=== PATIENT | female | born 1940 | race African-American/Black ===

== ENCOUNTER 2022-09-08 07:58 | Inpatient (IN) | payer MEDICARE, MEDICAID ==
[~2022-09-08] VITALS: Ht 157.5 cm; Wt 102.1 kg
[~2022-09-08 07:58] MED LIST: AMLO1TAB64; ASPI-1406; CLOP75TA33; CRES10; ESOM40CA; FURO20TA4; LEVO-65; METF-415; METO-411; POTA-189
[2022-09-08] MEDS ORDERED: ONDANSETRON HCL 4MG/2ML INJ IV STA (08:09)
[2022-09-08] MEDS: KETOROLAC 30MG/ML VIAL IV STA ×2 (09:02→09:03)
[2022-09-08 09:05] LABS: BASOPHILS % 0.6 % (0.0-2.0); EOSINOPHILS % 2.4 % (0.0-5.0); HEMATOCRIT. 38.1 % (36.0-48.0); HEMOGLOBIN. 12.6 g/dL (12.0-16.0); LYMPHOCYTES % 33.6 % (20.0-50.0); MEAN CORPUSCULAR HEMOGLOBIN 32.1 pg (28.0-32.0); MEAN CORPUSCULAR VOLUME 97.1 fL (81.0-99.0); MEAN PLATELET VOLUME 8.9 fl (7.4-10.4); MONOCYTES % 7.6 % (2.0-8.0); NEUTROPHILS % 55.8 % (40.0-76.0); PLATELET 204 x1000/uL (130-400); RED BLOOD CELL COUNT 3.92 mill/uL (4.2-5.4); RED CELL DISTRIBUTION WIDTH 14.4 % (11.6-14.6)
[2022-09-08 09:09] LABS: CHLORIDE 95 mEq/L (98-107)
[2022-09-08] MEDS ORDERED: HYDRALAZINE 20MG/ML VIAL IV ONE (09:30)
[2022-09-08] MEDS ORDERED: INSULIN REGULAR (HUMULIN R) 300UNITS/3ML VIAL SUBCUT ONE (10:15)
[2022-09-08] MEDS ORDERED: ONDANSETRON HCL 4MG/2ML INJ IV PRN (14:15)
[2022-09-08] MEDS ORDERED: ACETAMINOPHEN 325MG TABLET PO PRN (14:15)
[2022-09-08] MEDS ORDERED: MAGNESIUM/ALUMINUM HYDROXIDE/SIMETHICONE 30ML UDC PO PRN (14:15)
[2022-09-08] MEDS ORDERED: ENOXAPARIN 40MG/0.4ML SYR SUBCUT SCH (14:15)
[2022-09-08] MEDS ORDERED: DOCUSATE SODIUM 100MG CAPSULE PO PRN (14:15)
[2022-09-08] MEDS ORDERED: GUAIFENESIN 200MG/10ML SUGAR FREE UDC PO PRN (14:15)
[2022-09-08] MEDS ORDERED: TRAMADOL 50MG TABLET PO PRN (14:15)
[2022-09-08] MEDS: AMLODIPINE 10MG TABLET PO SCH (14:30)
[2022-09-08] MEDS: PANTOPRAZOLE SODIUM 40 MG/VIAL IV SCH (14:30)
[2022-09-08] MEDS ORDERED: NALOXONE HCL 0.4MG/ML VIAL IV PRN (14:30)
[2022-09-08] MEDS: LOSARTAN POTASSIUM 50 MG TABLET PO SCH (15:59)
[2022-09-08] MEDS ORDERED: DEXTROSE 50% WATER 50ML SYRINGE IV PRN (19:30)
[2022-09-08 19:35] VITALS: BP 190/66
[2022-09-08] MEDS: ENOXAPARIN 30MG/0.3ML SYR SUBCUT SCH (19:50)
[2022-09-08] MEDS: CLONIDINE 0.1MG TABLET PO PRN (19:50)
[2022-09-08 20:00] VITALS: BP 190/66
[2022-09-08] MEDS: BLOOD SUGAR DIAGNOSTIC STRIP TEST SCH (20:44)
[2022-09-08] MEDS: INSULIN LISPRO 100 UNITS/ML SUBCUT SCH (20:44)
[2022-09-08] MEDS ORDERED: POTASSIUM CHLORIDE 20MEQ TABLET SR PO NR (22:00)
[2022-09-09] VITALS (7 sets, daily range): BP systolic 122–179; BP diastolic 50–88
[2022-09-09] MEDS: ENOXAPARIN 30MG/0.3ML SYR SUBCUT SCH ×2 (06:05→17:17)
[2022-09-09] MEDS: BLOOD SUGAR DIAGNOSTIC STRIP TEST SCH ×4 (06:06→20:38)
[2022-09-09] MEDS: INSULIN LISPRO 100 UNITS/ML SUBCUT SCH ×4 (06:06→20:38)
[2022-09-09 06:37] LABS: BASOPHILS % 0.7 % (0.0-2.0); EOSINOPHILS % 2.4 % (0.0-5.0); HEMATOCRIT. 37.1 % (36.0-48.0); HEMOGLOBIN. 12.1 g/dL (12.0-16.0); LYMPHOCYTES % 32.7 % (20.0-50.0); MEAN CORPUSCULAR HEMOGLOBIN 31.4 pg (28.0-32.0); MEAN PLATELET VOLUME 9.4 fl (7.4-10.4); MONOCYTES % 7.4 % (2.0-8.0); NEUTROPHILS % 56.8 % (40.0-76.0); PLATELET 200 x1000/uL (130-400); RED BLOOD CELL COUNT 3.86 mill/uL (4.2-5.4); RED CELL DISTRIBUTION WIDTH 14.4 % (11.6-14.6)
[2022-09-09 06:55] LABS: CHLORIDE 100 mEq/L (98-107)
[2022-09-09 07:08] LABS: HDL CHOLESTEROL 43 mg/dL (40-59); LDL CHOLESTEROL 141 mg/dL (5-100)
[2022-09-09] MEDS: PANTOPRAZOLE SODIUM 40 MG/VIAL IV SCH (08:09)
[2022-09-09] MEDS: LOSARTAN POTASSIUM 50 MG TABLET PO SCH (08:10)
[2022-09-09] MEDS: AMLODIPINE 10MG TABLET PO SCH (08:10)
[2022-09-09] MEDS: CLONIDINE 0.1MG TABLET PO PRN (08:13)
[2022-09-10] VITALS: BP 154/63
[2022-09-10 04:00] VITALS: BP 150/88
[2022-09-10] MEDS: ENOXAPARIN 30MG/0.3ML SYR SUBCUT SCH (05:59)
[2022-09-10] MEDS: INSULIN LISPRO 100 UNITS/ML SUBCUT SCH (06:09)
[2022-09-10] MEDS: BLOOD SUGAR DIAGNOSTIC STRIP TEST SCH (06:10)
[2022-09-10 08:17] VITALS: BP 109/50
[2022-09-10] MEDS: AMLODIPINE 10MG TABLET PO SCH (08:35)
[2022-09-10] MEDS ORDERED: LOSARTAN POTASSIUM 100 MG TABLET PO SCH (09:00)
[2022-09-10] MEDS ORDERED: FAMOTIDINE 20MG/2ML VIAL IV SCH (09:00)
[2022-09-10 09:25] VITALS: BP 120/53
[2022-09-11] MEDS ORDERED: FAMOTIDINE 20MG TABLET PO SCH (09:00)
== END 2022-09-10 12:00 | disposition home health service (06) | DRG 199 ==
LOC: ER 07:58 → MICUSO 10:11 → EDBEDREQTM 10:13 → EDBEDREQ 10:13 → 8WST 18:50
PROVIDERS: ADMIT Hospitalist; ATTEND Hospitalist
DX: I16.0 Hypertensive urgency (principal); E87.1 Hypo-osmolality and hyponatremia; R10.9 Unspecified abdominal pain; E87.6 Hypokalemia; E11.65 Type 2 diabetes mellitus with hyperglycemia; I25.10 Atherosclerotic heart disease of native coronary artery without angina pectoris; Z20.822 Contact with and (suspected) exposure to COVID-19; I10 Essential (primary) hypertension; E78.5 Hyperlipidemia, unspecified; R74.01 Elevation of levels of liver transaminase levels; Z28.310 Unvaccinated for COVID-19; Z87.891 Personal history of nicotine dependence; Z88.0 Allergy status to penicillin; Z79.899 Other long term (current) drug therapy; Z82.49 Family history of ischemic heart disease and other diseases of the circulatory system
CPT/HCPCS: 36415; 74176; 80053; 80061; 82962; 83036; 85025; 87426; 93005; 93970; 97162; 97165; 97530; 99285; C9113; J0360; J1650; J1815; J1885; J2405; J3490

== ENCOUNTER 2025-01-29 17:22 | Inpatient (IN) | payer MEDICARE, MEDICAID ==
[~2025-01-29] VITALS: Ht 170.2 cm; Wt 78.9 kg
[2025-01-29 18:19] LABS: BASOPHILS % 0.7 % (0.0-2.0); DIFFERENTIAL COMMENT 0; EOSINOPHILS % 0.9 % (0.0-5.0); LYMPHOCYTES % 13.1 % (20.0-50.0); MEAN CORPUSCULAR HEMOGLOBIN 23.2 pg (28.0-32.0); MEAN CORPUSCULAR HGB CONC 29.9 g/dL (31.0-37.0); MEAN CORPUSCULAR VOLUME 77.5 fL (81.0-99.0); MEAN PLATELET VOLUME 7.8 fl (7.4-10.4); MONOCYTES % 5.7 % (2.0-8.0); NEUTROPHILS % 79.6 % (40.0-76.0); PLATELET 283 x1000/uL (130-400); RED BLOOD CELL COUNT 2.64 mill/uL (4.2-5.4); RED CELL DISTRIBUTION WIDTH 21.8 % (11.6-14.6); WHITE BLOOD COUNT 9.5 x1000/uL (4.5-11.0)
[2025-01-29 18:27] LABS: HEMATOCRIT. 20.5 % (36.0-48.0); HEMOGLOBIN. 6.1 g/dL (12.0-16.0)
[2025-01-29 18:28] LABS: INR 1.1; PROTHROMBIN TIME 11.5 sec (9.6-11.0)
[2025-01-29 18:36] LABS: CARBON DIOXIDE 27 mEq/L (21-32); CHLORIDE 110 mEq/L (98-107); POTASSIUM 4.5 mEq/L (3.5-5.1); SODIUM 143 mEq/L (136-145)
[2025-01-29 18:37] LABS: CALCIUM 9.5 mg/dL (8.7-10.4)
[2025-01-29 18:41] LABS: CREATININE 1.3 mg/dL (0.6-1.0)
[2025-01-29 18:42] LABS: GLUCOSE 137 mg/dL (70-105); UREA NITROGEN BLOOD 21 mg/dL (9-23)
[2025-01-29 18:43] LABS: ALANINE AMINOTRANSFERASE 12 IU/L (10-49); ASPARTATE AMINOTRANSFERASE 21 IU/L (<34)
[2025-01-29 18:44] LABS: ALBUMIN 3.7 g/dL (3.2-4.8); BILIRUBIN DIRECT < 0.1 mg/dL (<=3.0); BILIRUBIN TOTAL 0.3 mg/dL (0.1-1.0); PHOSPHORUS 3.6 mg/dL (2.5-4.9); PROTEIN TOTAL 6.7 g/dL (6.0-8.3)
[2025-01-29 18:49] LABS: TROPONIN I HIGH SENSITIVITY 65 ng/L (3.0-34)
[2025-01-29] MEDS: SODIUM CHLORIDE 0.9% 1,000 ML IV ONE (19:44)
[2025-01-29 20:29] LABS: INFLUENZA TYPE A Presumptive Negative (Pres. Neg.)
[2025-01-29 20:30] LABS: INFLUENZA TYPE B Presumptive Negative (Pres. Neg.)
[2025-01-29 20:31] LABS: RESPIRATORY SYNCYTIAL VIRUS Not Detected (Not Detectd)
[2025-01-29] MEDS ORDERED: ONDANSETRON HCL 4MG/2ML INJ IV PRN (21:00)
[2025-01-29] MEDS ORDERED: NA PHOS,M-B/NA PHOS,DI-BA ENEMA 118ML PR PRN (21:00)
[2025-01-29] MEDS ORDERED: DOCUSATE SODIUM 100MG CAPSULE PO PRN (21:00)
[2025-01-29] MEDS ORDERED: ACETAMINOPHEN 325MG TABLET PO PRN (21:00)
[2025-01-29] MEDS ORDERED: NITROGLYCERIN 0.4MG TABLET SL SL PRN (21:00)
[2025-01-29] MEDS: INSULIN LISPRO 100 UNITS/ML SUBCUT SCH (21:00)
[2025-01-29] MEDS ORDERED: DEXTROSE 50% WATER 50ML SYRINGE IV PRN (21:00)
[2025-01-29] MEDS: BLOOD SUGAR DIAGNOSTIC STRIP TEST SCH (21:00)
[2025-01-29] MEDS ORDERED: IPRATROPIUM/ALBUTEROL 0.5-3(2.5)MG/3ML NEB NEB PRN (21:00)
[2025-01-29] MEDS ORDERED: MAGNESIUM/ALUMINUM HYDROXIDE/SIMETHICONE 30ML UDC PO PRN ×2 (21:00)
[2025-01-29] MEDS ORDERED: DIPHENHYDRAMINE 50MG/ML VIAL IV PRN (21:00)
[2025-01-29] MEDS ORDERED: SODIUM CHLORIDE 0.45% 1,000 ML IV SCH (21:00)
[2025-01-29] MEDS ORDERED: MORPHINE SULFATE 2 MG/ML INJ (NOT FOR IM USE) IV PRN (21:00)
[2025-01-29 21:39] LABS: IRON 14 ug/dL (50-170)
[2025-01-29 21:42] LABS: TOTAL IRON BINDING CAPACITY 337 ug/dl (250-425)
[2025-01-29 21:45] LABS: FOLIC ACID (FOLATE) SERUM > 20.00 ng/mL (>5.38)
[2025-01-29 21:46] LABS: VITAMIN B12 SERUM 950 pg/mL (211-911)
[2025-01-29 21:47] LABS: FERRITIN 4 ng/mL (10-291)
[2025-01-29] MEDS: OSELTAMIVIR 30MG CAPSULE PO SCH (22:05)
[2025-01-29] MEDS: HYDRALAZINE 20MG/ML VIAL IV SCH (22:07)
[2025-01-29] MEDS: SODIUM CHLORIDE 0.9% 1,000 ML IV SCH (22:15)
[2025-01-29 22:50] VITALS: BP 161/56; PULSE 58; RESP 18; TEMP 35.7
[2025-01-29 23:15] VITALS: BP 161/56; PULSE 58; RESP 18; TEMP 35.7; O2SAT 99
[2025-01-30] VITALS: BP 169/51; PULSE 56; RESP 22; TEMP 35.6; O2SAT 100
[2025-01-30] MEDS: ATORVASTATIN CALCIUM 40MG TABLET PO SCH (01:02)
[2025-01-30] MEDS: METOPROLOL TARTRATE 25MG TABLET PO SCH (01:02)
[2025-01-30 01:31] LABS: CHLORIDE 109 mEq/L (98-107); POTASSIUM 4.1 mEq/L (3.5-5.1); SODIUM 141 mEq/L (136-145)
[2025-01-30 01:32] LABS: CALCIUM 8.8 mg/dL (8.7-10.4); CARBON DIOXIDE 25 mEq/L (21-32)
[2025-01-30 01:37] LABS: GLUCOSE 90 mg/dL (70-105); UREA NITROGEN BLOOD 19 mg/dL (9-23)
[2025-01-30 01:38] LABS: CREATINE KINASE MB FRACTION < 0.5 ng/mL (0.5-3.6)
[2025-01-30 01:39] LABS: CREATINE KINASE 43 IU/L (34-145)
[2025-01-30 01:41] LABS: TROPONIN I HIGH SENSITIVITY 44 ng/L (3.0-34)
[2025-01-30] MEDS ORDERED: NALOXONE HCL 0.4MG/ML VIAL IV PRN (02:00)
[2025-01-30] MEDS ORDERED: PNEUMOCOCCAL 20-VAL CONJ-DIP CRM 0.5ML IM ONE (03:45)
[2025-01-30 04:00] VITALS: BP 175/57; PULSE 58; RESP 22; TEMP 35.7; O2SAT 97
[2025-01-30] MEDS: CLONIDINE 0.1MG TABLET PO PRN (05:13)
[2025-01-30] MEDS: INSULIN LISPRO 100 UNITS/ML SUBCUT SCH (07:20)
[2025-01-30 07:43] LABS: BASOPHILS % 1.5 % (0.0-2.0); DIFFERENTIAL COMMENT 0; EOSINOPHILS % 0.6 % (0.0-5.0); HEMATOCRIT. 23.4 % (36.0-48.0); HEMOGLOBIN. 7.2 g/dL (12.0-16.0); LYMPHOCYTES % 17.1 % (20.0-50.0); MEAN CORPUSCULAR HEMOGLOBIN 24.5 pg (28.0-32.0); MEAN CORPUSCULAR HGB CONC 30.8 g/dL (31.0-37.0); MEAN CORPUSCULAR VOLUME 79.6 fL (81.0-99.0); MEAN PLATELET VOLUME 8.1 fl (7.4-10.4); MONOCYTES % 7.9 % (2.0-8.0); NEUTROPHILS % 72.9 % (40.0-76.0); PLATELET 237 x1000/uL (130-400); RED BLOOD CELL COUNT 2.94 mill/uL (4.2-5.4); RED CELL DISTRIBUTION WIDTH 21.4 % (11.6-14.6); WHITE BLOOD COUNT 7.7 x1000/uL (4.5-11.0)
[2025-01-30 07:55] LABS: CREATINE KINASE MB FRACTION < 0.5 ng/mL (0.5-3.6)
[2025-01-30 07:56] LABS: CALCIUM 8.6 mg/dL (8.7-10.4); CARBON DIOXIDE 26 mEq/L (21-32); CHLORIDE 107 mEq/L (98-107); SODIUM 139 mEq/L (136-145)
[2025-01-30 07:59] LABS: T4 FREE 0.65 ng/dL (0.89-1.76)
[2025-01-30 08:00] VITALS: BP 179/58; PULSE 49; RESP 18; TEMP 36.1; O2SAT 95
[2025-01-30 08:00] LABS: CREATINE KINASE 41 IU/L (34-145); THYROID STIMULATING HORMONE 1.71 uIU/mL (0.55-4.78)
[2025-01-30 08:02] LABS: GLUCOSE 81 mg/dL (70-105); TRIGLYCERIDE 89 mg/dL (0-150); UREA NITROGEN BLOOD 19 mg/dL (9-23)
[2025-01-30 08:03] LABS: LDL CHOLESTEROL 103 mg/dL (5-100)
[2025-01-30 08:04] LABS: CHOLESTEROL 166 mg/dL (<200); HDL CHOLESTEROL 44 mg/dL (>65); TROPONIN I HIGH SENSITIVITY 45 ng/L (3.0-34)
[2025-01-30] MEDS: AMLODIPINE 10MG TABLET PO SCH (09:00)
[2025-01-30] MEDS: FUROSEMIDE 20MG TABLET PO SCH (09:00)
[2025-01-30] MEDS: INSULIN GLARGINE 100 UNITS/ML SUBCUT SCH (10:00)
[2025-01-30] MEDS: FERROUS SULFATE 325MG TABLET PO SCH (10:00)
[2025-01-30] MEDS: CLOPIDOGREL 75MG TABLET PO SCH (10:00)
[2025-01-30] MEDS: LOSARTAN 50 MG TABLET PO SCH (10:01)
[2025-01-30] MEDS ORDERED: LIDOCAINE HCL 1% 10 MG/ML 10ML VIAL ONE (11:06)
[2025-01-30 12:00] VITALS: BP 145/53; PULSE 51; RESP 18; TEMP 36.1; O2SAT 95
[2025-01-30 16:00] VITALS: BP 152/45; PULSE 53; RESP 18; TEMP 36.1; O2SAT 96
[2025-01-30] MEDS: GUAIFENESIN 200MG/10ML SUGAR FREE UDC PO PRN (17:45)
[2025-01-30] MEDS ORDERED: NON FORMULARY MED XX SCH (18:45)
[2025-01-30 20:00] VITALS: BP 167/49; PULSE 51; RESP 18; TEMP 36.4; O2SAT 98
[2025-01-30] MEDS: IRON SUCROSE COMPLEX 100 MG/5 ML ML IV SCH (22:11)
[2025-01-30 22:20] LABS: TROPONIN I HIGH SENSITIVITY 47 ng/L (3.0-34)
[2025-01-30] MEDS: SENNOSIDES/DOCUSATE SOD 8.6/50MG TABLET PO SCH (22:28)
[2025-01-30] MEDS: LACTULOSE 20G/30ML UDC PO SCH (22:58)
[2025-01-30] MEDS: PANTOPRAZOLE SODIUM 40 MG/VIAL IV SCH (22:59)
[2025-01-31] VITALS: BP_SYST 183; BP_SYST 185; BP_DIAS 49; BP_DIAS 51; PULSE 51; RESP 19; TEMP 36.5; O2SAT 97
[2025-01-31] MEDS: CLONIDINE 0.2MG TABLET PO PRN (01:42)
[2025-01-31 04:00] VITALS: BP 179/46; PULSE 44; RESP 19; TEMP 36.4; O2SAT 95
[2025-01-31] MEDS ORDERED: CLONIDINE 0.3MG TABLET PO PRN (07:30)
[2025-01-31 08:00] VITALS: BP 184/49; PULSE 47; RESP 17; TEMP 36.4; O2SAT 95
[2025-01-31] MEDS: PANTOPRAZOLE SODIUM 40 MG/VIAL IV SCH (08:41)
[2025-01-31] MEDS: HYDRALAZINE HCL 100MG TABLET PO SCH (08:42)
[2025-01-31 10:06] LABS: BASOPHILS % 0.7 % (0.0-2.0); DIFFERENTIAL COMMENT 0; EOSINOPHILS % 1.3 % (0.0-5.0); HEMATOCRIT. 23.4 % (36.0-48.0); HEMOGLOBIN. 7.3 g/dL (12.0-16.0); LYMPHOCYTES % 14.1 % (20.0-50.0); MEAN CORPUSCULAR HEMOGLOBIN 24.7 pg (28.0-32.0); MEAN CORPUSCULAR HGB CONC 31.1 g/dL (31.0-37.0); MEAN CORPUSCULAR VOLUME 79.6 fL (81.0-99.0); MEAN PLATELET VOLUME 8.3 fl (7.4-10.4); MONOCYTES % 6.4 % (2.0-8.0); NEUTROPHILS % 77.5 % (40.0-76.0); PLATELET 237 x1000/uL (130-400); RED BLOOD CELL COUNT 2.94 mill/uL (4.2-5.4); RED CELL DISTRIBUTION WIDTH 21.7 % (11.6-14.6)
[2025-01-31 10:17] LABS: CHLORIDE 107 mEq/L (98-107); POTASSIUM 3.5 mEq/L (3.5-5.1); SODIUM 141 mEq/L (136-145)
[2025-01-31 10:18] LABS: CALCIUM 8.5 mg/dL (8.7-10.4); CARBON DIOXIDE 26 mEq/L (21-32)
[2025-01-31 10:23] LABS: GLUCOSE 84 mg/dL (70-105); UREA NITROGEN BLOOD 15 mg/dL (9-23)
[2025-01-31] MEDS: MORPHINE SULFATE 4 MG/ML INJ (FOR IV/IM USE) IV PRN (10:49)
[2025-01-31] MEDS: HYDROCODONE/ACETAMINOPHEN 5/325MG TABLET PO PRN (11:12)
[2025-01-31 12:00] VITALS: BP 141/54; PULSE 52; RESP 17; TEMP 36.8; O2SAT 100
[2025-01-31] MEDS ORDERED: HALOPERIDOL 0.5MG TABLET PO PRN (13:00)
[2025-01-31] MEDS ORDERED: HYDRALAZINE HCL 25MG TABLET PO SCH (14:00)
[2025-01-31 16:00] VITALS: BP 148/38; PULSE 89; RESP 19; TEMP 36.1; O2SAT 100
[2025-01-31 20:00] VITALS: BP 159/40; PULSE 50; RESP 20; TEMP 36.7; O2SAT 99
[2025-02-01] VITALS: BP 164/113; PULSE 49; RESP 19; TEMP 36.6; O2SAT 99
[2025-02-01 04:00] VITALS: BP 177/46; PULSE 51; RESP 19; TEMP 36.6; O2SAT 99
[2025-02-01 07:16] LABS: BASOPHILS % 1.7 % (0.0-2.0); EOSINOPHILS % 2.8 % (0.0-5.0); HEMATOCRIT. 23.2 % (36.0-48.0); HEMOGLOBIN. 7.2 g/dL (12.0-16.0); LYMPHOCYTES % 12.7 % (20.0-50.0); MEAN CORPUSCULAR HEMOGLOBIN 24.7 pg (28.0-32.0); MEAN CORPUSCULAR HGB CONC 31.2 g/dL (31.0-37.0); MEAN PLATELET VOLUME 8.3 fl (7.4-10.4); MONOCYTES % 5.5 % (2.0-8.0); NEUTROPHILS % 77.3 % (40.0-76.0); PLATELET 228 x1000/uL (130-400); RED BLOOD CELL COUNT 2.94 mill/uL (4.2-5.4); RED CELL DISTRIBUTION WIDTH 22.2 % (11.6-14.6); WHITE BLOOD COUNT 7.9 x1000/uL (4.5-11.0)
[2025-02-01 07:21] LABS: DIFFERENTIAL COMMENT 1
[2025-02-01 07:22] LABS: ADD RBC MORPHOLOGY YES
[2025-02-01 07:26] LABS: CALCIUM 8.2 mg/dL (8.7-10.4); CHLORIDE 107 mEq/L (98-107); POTASSIUM 3.4 mEq/L (3.5-5.1); SODIUM 139 mEq/L (136-145)
[2025-02-01 07:27] LABS: CARBON DIOXIDE 24 mEq/L (21-32)
[2025-02-01 07:32] LABS: GLUCOSE 75 mg/dL (70-105); UREA NITROGEN BLOOD 13 mg/dL (9-23)
[2025-02-01 08:00] VITALS: BP 199/53; PULSE 56; RESP 16; TEMP 36.9; O2SAT 97
[2025-02-01] MEDS: POTASSIUM CHLORIDE 20MEQ/PACKET PO SCH (08:30)
[2025-02-01] MEDS ORDERED: HYDR100T11 MT (09:00)
[2025-02-01] MEDS ORDERED: FERR325T6 MT (09:00)
[2025-02-01] MEDS ORDERED: CLON0.2T MT (09:00)
[2025-02-01 10:14] VITALS: BP 156/41; PULSE 57; TEMP 97.5; O2SAT 96
[2025-02-01 10:34] LABS: ANISOCYTOSIS 3+; MICROCYTOSIS 1+; PLATELET ESTIMATE NORMAL
== END 2025-02-01 11:40 | disposition home or self-care (01) | DRG 812 ==
LOC: ER 17:22 → 6WST 19:39 → EDBEDREQ 19:44 → ENRESERV 21:28
PROVIDERS: ADMIT Internal Medicine; ATTEND Internal Medicine
PROC: 30233N1 Transfusion of Nonautologous Red Blood Cells into Peripheral Vein, Percutaneous Approach (ICD-10-PCS; principal; 2025-01-29)
DX: D50.9 Iron deficiency anemia, unspecified (principal); I16.9 Hypertensive crisis, unspecified; N17.9 Acute kidney failure, unspecified; I24.89 Other forms of acute ischemic heart disease; I50.42 Chronic combined systolic (congestive) and diastolic (congestive) heart failure; J06.9 Acute upper respiratory infection, unspecified; Z20.822 Contact with and (suspected) exposure to COVID-19; I25.119 Atherosclerotic heart disease of native coronary artery with unspecified angina pectoris; I11.0 Hypertensive heart disease with heart failure; E11.9 Type 2 diabetes mellitus without complications; Z79.02 Long term (current) use of antithrombotics/antiplatelets; Z79.4 Long term (current) use of insulin; Z79.82 Long term (current) use of aspirin; Z79.84 Long term (current) use of oral hypoglycemic drugs; I25.2 Old myocardial infarction; Z79.899 Other long term (current) drug therapy; Z82.49 Family history of ischemic heart disease and other diseases of the circulatory system; Z87.891 Personal history of nicotine dependence; Z88.0 Allergy status to penicillin; Z90.710 Acquired absence of both cervix and uterus
CPT/HCPCS: 36415; 36573; 71045; 80048; 80061; 80076; 82270; 82550; 82553; 82607; 82728; 82746; 82962; 83036; 83540; 83550; 83605; 83735; 83880; 84100; 84145; 84439; 84443; 84484; 85025; 85044; 86850; 86900; 86920; 87420; 87426; 87804; 90732; 93005; 97162; 97166; 97530; 97535; 99285; C1725; J0360; J2003; J2270; J2470; J7030; P9016

== ENCOUNTER 2025-02-21 18:15 | Inpatient (IN) | payer MEDICARE, MEDICAID ==
[~2025-02-21] VITALS: Ht 162.6 cm; Wt 63.5 kg
[~2025-02-21 18:15] MED LIST changes: +CHLO25TA2 PO; +CLON0.2T MT; -CRES10; +DOCU-422 PO; +DONE-53 PO; +FERR325T6 MT; +FURO20TA4 PO; +HYDR100T11 MT; -LEVO-65; +LIP40 PO; +LOSA100T33 PO; +NIFE-32 PO; -POTA-189
[2025-02-21 18:39] VITALS: BP 136/78; PULSE 68; RESP 16; TEMP 36.8
[2025-02-21] MEDS ORDERED: ACETAMINOPHEN 325MG TABLET PO PRN (19:00)
[2025-02-21] MEDS ORDERED: DOCUSATE SODIUM 100MG CAPSULE PO SCH (19:00)
[2025-02-21 20:00] VITALS: BP 166/52; PULSE 67; RESP 18; TEMP 36.7; O2SAT 96
[2025-02-21] MEDS: ATORVASTATIN CALCIUM 40MG TABLET PO SCH (20:55)
[2025-02-21] MEDS: PANTOPRAZOLE 40MG DR TABLET PO SCH (20:56)
[2025-02-21] MEDS: HYDRALAZINE HCL 100MG TABLET PO SCH (21:19)
[2025-02-21] MEDS: MELATONIN 3MG TABLET PO PRN (22:11)
[2025-02-21 22:20] VITALS: BP 144/48
[2025-02-22] MEDS: ACETAMINOPHEN 325MG TABLET PO PRN (05:00)
[2025-02-22] MEDS: SULFAMETHOXAZOLE/TRIMETHOPRIM 800/160MG TABLET PO SCH (05:02)
[2025-02-22 06:08] VITALS: BP 128/48
[2025-02-22] MEDS: TRAMADOL HCL/ACETAMINOPHEN 37.5/325MG TABLET PO PRN (06:45)
[2025-02-22 08:00] VITALS: BP 118/52; PULSE 73; RESP 19; TEMP 36.6; O2SAT 97
[2025-02-22] MEDS: ONDANSETRON 4MG ODT PO PRN (08:38)
[2025-02-22] MEDS: FERROUS SULFATE 325MG TABLET PO SCH (08:38)
[2025-02-22] MEDS: ASPIRIN 81MG EC TABLET PO SCH (08:38)
[2025-02-22] MEDS: FAMOTIDINE 20MG TABLET PO SCH (08:38)
[2025-02-22] MEDS: POLYETHYLENE GLYCOL 3350 (17GM) 1 DOSE PACK PO SCH (08:39)
[2025-02-22] MEDS: CLOPIDOGREL 75MG TABLET PO SCH (08:39)
[2025-02-22] MEDS: AMLODIPINE 10MG TABLET PO SCH (08:39)
[2025-02-22] MEDS: SODIUM CHLORIDE 0.45% 500 ML IV ONE (12:43)
[2025-02-22 16:49] LABS: BASOPHILS % 1.7 % (0.0-2.0); EOSINOPHILS % 4.9 % (0.0-5.0); HEMATOCRIT. 26.4 % (36.0-48.0); HEMOGLOBIN. 8.4 g/dL (12.0-16.0); LYMPHOCYTES % 23.1 % (20.0-50.0); MEAN CORPUSCULAR HEMOGLOBIN 27.1 pg (28.0-32.0); MEAN CORPUSCULAR HGB CONC 31.7 g/dL (31.0-37.0); MEAN CORPUSCULAR VOLUME 85.7 fL (81.0-99.0); NEUTROPHILS % 63.3 % (40.0-76.0); PLATELET 322 x1000/uL (130-400); RED BLOOD CELL COUNT 3.09 mill/uL (4.2-5.4); RED CELL DISTRIBUTION WIDTH 26.5 % (11.6-14.6); WHITE BLOOD COUNT 6.2 x1000/uL (4.5-11.0)
[2025-02-22 16:55] LABS: CHLORIDE 106 mEq/L (98-107); POTASSIUM 3.9 mEq/L (3.5-5.1); SODIUM 141 mEq/L (136-145)
[2025-02-22 16:56] LABS: CALCIUM 9.3 mg/dL (8.7-10.4); CARBON DIOXIDE 26 mEq/L (21-32)
[2025-02-22 17:01] LABS: GLUCOSE 93 mg/dL (70-105); UREA NITROGEN BLOOD 13 mg/dL (9-23)
[2025-02-22 17:02] LABS: ALBUMIN 3.8 g/dL (3.2-4.8)
[2025-02-22 17:03] LABS: ALANINE AMINOTRANSFERASE 14 IU/L (10-49); ASPARTATE AMINOTRANSFERASE 25 IU/L (<34); BILIRUBIN TOTAL 0.2 mg/dL (0.1-1.0); CREATININE 1.7 mg/dL (0.6-1.0); PREALBUMIN 9.2 mg/dl (10.0-40.0); PROTEIN TOTAL 6.6 g/dL (6.0-8.3)
[2025-02-22 17:11] LABS: DIFFERENTIAL COMMENT 1
[2025-02-22 20:24] VITALS: BP 144/50; PULSE 65; RESP 18; TEMP 36.8; O2SAT 96
[2025-02-23 08:00] VITALS: BP 129/79; PULSE 72; RESP 18; TEMP 37.1; O2SAT 96
[2025-02-23 20:00] VITALS: BP 133/55; PULSE 66; RESP 18; TEMP 36.7; O2SAT 96
[2025-02-24 08:00] VITALS: BP 150/82; PULSE 68; RESP 20; TEMP 37; O2SAT 100
[2025-02-24] MEDS: ASCORBIC ACID 500 MG TABLET PO SCH (09:04)
[2025-02-24 20:00] VITALS: BP 147/43; PULSE 75; RESP 19; TEMP 36.9; O2SAT 99
[2025-02-25 08:00] VITALS: BP 160/45; PULSE 74; RESP 18; TEMP 36.2; O2SAT 98
[2025-02-25 20:51] VITALS: BP 144/48; PULSE 81; RESP 19; TEMP 36.7; O2SAT 97
[2025-02-26 08:00] VITALS: BP 134/42; PULSE 71; RESP 18; TEMP 36.1; O2SAT 97
[2025-02-26 20:00] VITALS: BP 152/48; PULSE 74; RESP 18; TEMP 36.7; O2SAT 97
[2025-02-27 06:21] LABS: BASOPHILS % 0.9 % (0.0-2.0); EOSINOPHILS % 6.3 % (0.0-5.0); HEMATOCRIT. 23.8 % (36.0-48.0); HEMOGLOBIN. 7.3 g/dL (12.0-16.0); LYMPHOCYTES % 29.2 % (20.0-50.0); MEAN CORPUSCULAR HEMOGLOBIN 26.5 pg (28.0-32.0); MEAN CORPUSCULAR HGB CONC 30.9 g/dL (31.0-37.0); MEAN CORPUSCULAR VOLUME 85.7 fL (81.0-99.0); MEAN PLATELET VOLUME 8.2 fl (7.4-10.4); MONOCYTES % 8.1 % (2.0-8.0); NEUTROPHILS % 55.5 % (40.0-76.0); PLATELET 270 x1000/uL (130-400); RED BLOOD CELL COUNT 2.77 mill/uL (4.2-5.4); RED CELL DISTRIBUTION WIDTH 27.2 % (11.6-14.6); WHITE BLOOD COUNT 5.5 x1000/uL (4.5-11.0)
[2025-02-27 06:24] LABS: POTASSIUM 4.3 mEq/L (3.5-5.1)
[2025-02-27 06:25] LABS: CALCIUM 8.9 mg/dL (8.7-10.4)
[2025-02-27 06:30] LABS: CREATININE 1.5 mg/dL (0.6-1.0)
[2025-02-27 06:42] LABS: DIFFERENTIAL COMMENT 1
[2025-02-27 08:00] VITALS: BP 151/50; PULSE 76; RESP 19; TEMP 36.7; O2SAT 98
[2025-02-27 20:00] VITALS: BP 141/59; PULSE 61; RESP 18; TEMP 36.8; O2SAT 98
[2025-02-28 08:00] VITALS: BP 130/59; PULSE 70; RESP 18; TEMP 36.1; O2SAT 98
[2025-02-28] MEDS ORDERED: NALOXONE HCL 0.4MG/ML VIAL IV PRN (09:30)
[2025-02-28 13:14] LABS: CLARITY URINE CLEAR (CLEAR); COLOR URINE YELLOW (YELLOW); GLUCOSE URINE NEGATIVE (NEGATIVE); KETONES URINE NEGATIVE (NEGATIVE); LEUKOCYTE ESTERASE URINE NEGATIVE (NEGATIVE); NITRITE URINE NEGATIVE (NEGATIVE); OCCULT BLOOD URINE NEGATIVE (NEGATIVE); PH URINE 5.5 (4.5-8.0); PROTEIN URINE 1+ (NEGATIVE); SPECIFIC GRAVITY URINE 1.014 (1.005-1.030); UROBILINOGEN URINE 0.2 E.U./dL (0.2-1.0)
[2025-02-28 13:25] LABS: CREATINE KINASE 49 IU/L (34-145)
[2025-02-28 13:26] LABS: PHOSPHORUS 3.2 mg/dL (2.5-4.9); TOTAL IRON BINDING CAPACITY 149 ug/dl (250-425)
[2025-02-28] MEDS: TRAMADOL HCL/ACETAMINOPHEN 37.5/325MG TABLET PO PRN (13:46)
[2025-02-28 14:07] LABS: BACTERIA URINE 1+; SQUAMOUS EPITHELIAL CELL URINE 1+ /lpf (RARE/1+); WBC URINE 0-2 /hpf (0-2)
[2025-02-28 14:08] LABS: RBC URINE NONE SEEN /hpf (0-2); YEAST URINE 1+
[2025-02-28 15:58] LABS: IRON 90 ug/dL (50-170)
[2025-02-28] MEDS ORDERED: CEFTRIAXONE 1GM/50ML 50 ML IV ONE (19:00)
[2025-02-28 20:00] VITALS: BP 134/44; PULSE 71; RESP 18; TEMP 37.8; O2SAT 97
[2025-03-01 06:35] LABS: BASOPHILS % 1.4 % (0.0-2.0); EOSINOPHILS % 6.5 % (0.0-5.0); HEMATOCRIT. 25.1 % (36.0-48.0); HEMOGLOBIN. 7.9 g/dL (12.0-16.0); LYMPHOCYTES % 27.7 % (20.0-50.0); MEAN CORPUSCULAR HEMOGLOBIN 27.1 pg (28.0-32.0); MEAN CORPUSCULAR HGB CONC 31.5 g/dL (31.0-37.0); MEAN CORPUSCULAR VOLUME 85.9 fL (81.0-99.0); MEAN PLATELET VOLUME 7.9 fl (7.4-10.4); MONOCYTES % 7.6 % (2.0-8.0); NEUTROPHILS % 56.8 % (40.0-76.0); PLATELET 277 x1000/uL (130-400); RED BLOOD CELL COUNT 2.92 mill/uL (4.2-5.4); RED CELL DISTRIBUTION WIDTH 27.5 % (11.6-14.6); WHITE BLOOD COUNT 5.7 x1000/uL (4.5-11.0)
[2025-03-01 06:44] LABS: DIFFERENTIAL COMMENT 1
[2025-03-01 06:45] LABS: ADD RBC MORPHOLOGY NO
[2025-03-01 06:47] LABS: POTASSIUM 4.4 mEq/L (3.5-5.1)
[2025-03-01 06:48] LABS: CALCIUM 9.8 mg/dL (8.7-10.4)
[2025-03-01 06:53] LABS: CREATININE 1.4 mg/dL (0.6-1.0)
[2025-03-01 08:00] VITALS: BP 139/69; PULSE 79; RESP 19; TEMP 36.4; O2SAT 98
[2025-03-01] MEDS ORDERED: ASCO500T20 PO (10:55)
[2025-03-01] MEDS ORDERED: AMLO10TA80 PO (10:55)
[2025-03-01] MEDS ORDERED: LIP40 PO (10:55)
[2025-03-01] MEDS ORDERED: POLY17PO43 PO (10:55)
[2025-03-01 11:00] VITALS: BP 139/69; PULSE 79; TEMP 97.5; O2SAT 98
[2025-03-02] MEDS ORDERED: FAMOTIDINE 20MG TABLET PO SCH (09:00)
== END 2025-03-01 12:50 | disposition home health service (06) | DRG 71 ==
PROVIDERS: ADMIT Physical Medicine & Rehabilitation Spinal Cord Injury Medicine; ATTEND Internal Medicine
DX: G93.41 Metabolic encephalopathy (principal); F02.83 Dementia in other diseases classified elsewhere, unspecified severity, with mood disturbance; N17.9 Acute kidney failure, unspecified; N39.0 Urinary tract infection, site not specified; F02.84 Dementia in other diseases classified elsewhere, unspecified severity, with anxiety; E86.0 Dehydration; I44.1 Atrioventricular block, second degree; G62.1 Alcoholic polyneuropathy; E11.42 Type 2 diabetes mellitus with diabetic polyneuropathy; B96.20 Unspecified Escherichia coli [E. coli] as the cause of diseases classified elsewhere; I50.9 Heart failure, unspecified; I11.0 Hypertensive heart disease with heart failure; I25.10 Atherosclerotic heart disease of native coronary artery without angina pectoris; I25.2 Old myocardial infarction; R53.81 Other malaise; R26.9 Unspecified abnormalities of gait and mobility; D64.9 Anemia, unspecified; G89.29 Other chronic pain; M25.571 Pain in right ankle and joints of right foot; G30.9 Alzheimer's disease, unspecified; R55 Syncope and collapse; R13.10 Dysphagia, unspecified; E03.8 Other specified hypothyroidism; R00.1 Bradycardia, unspecified; I95.1 Orthostatic hypotension; Z82.49 Family history of ischemic heart disease and other diseases of the circulatory system; Z87.891 Personal history of nicotine dependence; Z88.0 Allergy status to penicillin; Z91.81 History of falling; Z79.899 Other long term (current) drug therapy; Z79.82 Long term (current) use of aspirin
CPT/HCPCS: 36415; 73610; 73630; 76770; 80048; 80053; 81003; 82306; 82550; 82728; 83540; 83550; 84100; 84134; 84145; 84300; 85025; 92523; 92610; 97110; 97116; 97162; 97166; 97530; 97535; Q0162

== ENCOUNTER 2025-05-30 13:19 | Inpatient (IN) | payer MEDICARE, MEDICAID ==
[~2025-05-30] VITALS: Ht 165.1 cm; Wt 80.9 kg
[~2025-05-30 13:19] MED LIST changes: +AMLO10TA80 PO; -AMLO1TAB64; +ASCO500T20 PO; -CHLO25TA2 PO; -CLON0.2T MT; -CLOP75TA33; -DOCU-422 PO; -ESOM40CA; -FURO20TA4; -METO-411; -NIFE-32 PO; +PANT40TA51 MT; +POLY17PO43 PO
[2025-05-30 13:22] VITALS: O2SAT 100
[2025-05-30 16:59] LABS: BASOPHILS % 0.6 % (0.0-2.0); EOSINOPHILS % 0.8 % (0.0-5.0); LYMPHOCYTES % 11.9 % (20.0-50.0); MEAN PLATELET VOLUME 7.9 fl (7.4-10.4); MONOCYTES % 5.6 % (2.0-8.0); NEUTROPHILS % 81.1 % (40.0-76.0); PLATELET 294 x1000/uL (130-400); RED BLOOD CELL COUNT 2.66 mill/uL (4.2-5.4); RED CELL DISTRIBUTION WIDTH 21.9 % (11.6-14.6)
[2025-05-30 17:03] LABS: HEMOGLOBIN. 6.6 g/dL (12.0-16.0)
[2025-05-30 17:05] LABS: HEMATOCRIT. 21.0 % (36.0-48.0)
[2025-05-30 17:08] LABS: CREATININE 1.0 mg/dL (0.6-1.0); TROPONIN I HIGH SENSITIVITY 13 ng/L (3.0-34); UREA NITROGEN BLOOD 9 mg/dL (9-23)
[2025-05-30 17:10] LABS: ASPARTATE AMINOTRANSFERASE 28 IU/L (<34); BILIRUBIN DIRECT < 0.1 mg/dL (<=3.0); BILIRUBIN TOTAL 0.2 mg/dL (0.1-1.0); PROTEIN TOTAL 6.3 g/dL (6.0-8.3)
[2025-05-30] MEDS: ACETAMINOPHEN 1000MG/100ML 100 ML IV SCH (17:18)
[2025-05-30] MEDS ORDERED: ACETAMINOPHEN 325MG TABLET PO PRN (21:45)
[2025-05-30] MEDS ORDERED: DOCUSATE SODIUM 100MG CAPSULE PO PRN (21:45)
[2025-05-30] MEDS ORDERED: IPRATROPIUM/ALBUTEROL 0.5-3(2.5)MG/3ML NEB HHN PRN (21:45)
[2025-05-30] MEDS ORDERED: GUAIFENESIN 200MG/10ML SUGAR FREE UDC PO PRN (21:45)
[2025-05-30] MEDS ORDERED: ONDANSETRON HCL 4MG/2ML INJ IV PRN (21:45)
[2025-05-30 23:00] VITALS: BP 157/132; PULSE 71; RESP 18; TEMP 36.1956
[2025-05-30 23:12] VITALS: BP 157/132; PULSE 71; RESP 18; TEMP 36.33624
[2025-05-30] MEDS ORDERED: DEXTROSE 50% WATER 50ML SYRINGE IV PRN (23:15)
[2025-05-30] MEDS ORDERED: IOHEXOL-300 100 ML BOTTLE ONE (23:16)
[2025-05-30 23:27] VITALS: BP 170/54; PULSE 70; RESP 18; TEMP 36.6696
[2025-05-31] VITALS (9 sets, daily range): BP systolic 151–185; BP diastolic 33–59; PULSE 60–76; RESP 18–20; TEMP 35.7–36.6; O2SAT 98–100
[2025-05-31] MEDS: HYDRALAZINE 20MG/ML VIAL IV PRN (02:17)
[2025-05-31] MEDS ORDERED: HYDRALAZINE 20MG/ML VIAL IV NR (05:15)
[2025-05-31] MEDS ORDERED: CLONIDINE 0.1MG TABLET PO PRN (05:30)
[2025-05-31] MEDS: HYDRALAZINE HCL 100MG TABLET PO SCH (05:35)
[2025-05-31] MEDS: INSULIN LISPRO 100 UNITS/ML SUBCUT SCH (07:09)
[2025-05-31] MEDS: BLOOD SUGAR DIAGNOSTIC STRIP TEST SCH (07:09)
[2025-05-31] MEDS: ACETAMINOPHEN 325MG TABLET PO PRN (08:31)
[2025-05-31] MEDS: DONEPEZIL HCL 10MG TABLET PO SCH (08:35)
[2025-05-31] MEDS: LOSARTAN 100 MG TABLET PO SCH (08:35)
[2025-05-31] MEDS: AMLODIPINE 10MG TABLET PO SCH (08:36)
[2025-05-31 08:55] LABS: BASOPHILS % 1.2 % (0.0-2.0); EOSINOPHILS % 2.4 % (0.0-5.0); HEMATOCRIT. 23.2 % (36.0-48.0); LYMPHOCYTES % 18.4 % (20.0-50.0); MEAN PLATELET VOLUME 8.0 fl (7.4-10.4); MONOCYTES % 7.2 % (2.0-8.0); NEUTROPHILS % 70.8 % (40.0-76.0); PLATELET 300 x1000/uL (130-400); RED BLOOD CELL COUNT 2.84 mill/uL (4.2-5.4); RED CELL DISTRIBUTION WIDTH 21.2 % (11.6-14.6)
[2025-05-31 08:59] LABS: HEMOGLOBIN. 7.6 g/dL (12.0-16.0)
[2025-05-31 09:05] LABS: CREATININE 1.0 mg/dL (0.6-1.0)
[2025-05-31 09:06] LABS: UREA NITROGEN BLOOD 9 mg/dL (9-23)
[2025-05-31] MEDS: PANTOPRAZOLE SODIUM 40 MG/VIAL IV SCH ×2 (09:22→21:00)
[2025-05-31] MEDS ORDERED: PANTOPRAZOLE SODIUM 40 MG/VIAL IV SCH ×2 (09:30→12:00)
[2025-05-31] MEDS: ASPIRIN 81MG EC TABLET PO SCH (09:44)
[2025-05-31] MEDS: POLYETHYLENE GLYCOL 3350 (17GM) 1 DOSE PACK PO NR (09:44)
[2025-05-31 09:47] LABS: FOLIC ACID (FOLATE) SERUM > 20.00 ng/mL (>5.38)
[2025-05-31 10:08] LABS: VITAMIN B12 SERUM 1710 pg/mL (211-911)
[2025-05-31] MEDS: FERROUS SULFATE 325MG TABLET PO SCH (12:26)
[2025-05-31] MEDS: POLYETHYLENE GLYCOL 3350 (17GM) 1 DOSE PACK PO SCH (12:26)
[2025-05-31 15:38] LABS: CLARITY URINE CLEAR (CLEAR); COLOR URINE YELLOW (YELLOW); GLUCOSE URINE NEGATIVE (NEGATIVE); KETONES URINE NEGATIVE (NEGATIVE); LEUKOCYTE ESTERASE URINE NEGATIVE (NEGATIVE); NITRITE URINE NEGATIVE (NEGATIVE); OCCULT BLOOD URINE NEGATIVE (NEGATIVE); PH URINE 5.5 (4.5-8.0); PROTEIN URINE 3+ (NEGATIVE); SPECIFIC GRAVITY URINE 1.030 (1.005-1.030); UROBILINOGEN URINE 0.2 E.U./dL (0.2-1.0)
[2025-05-31 15:47] LABS: RBC URINE NONE SEEN /hpf (0-2); WBC URINE 0-2 /hpf (0-2)
[2025-05-31 15:48] LABS: BACTERIA URINE TRACE; SQUAMOUS EPITHELIAL CELL URINE RARE /lpf (RARE/1+)
[2025-05-31 15:50] LABS: *AMPHETAMINES SCREEN URINE NEGATIVE (NEGATIVE); *BARBITURATES SCREEN URINE NEGATIVE (NEGATIVE); *BENZODIAZEPINES SCREEN URINE NEGATIVE (NEGATIVE); *COCAINE SCREEN URINE NEGATIVE (NEGATIVE); METHADONE URINE SCREEN NEGATIVE (NEGATIVE); OPIATES URINE SCREEN NEGATIVE (NEGATIVE)
[2025-05-31 15:51] LABS: CANNABINOID URINE SCREEN NEGATIVE (NEGATIVE); ECSTASY MDMA SCREEN URINE NEGATIVE (NEGATIVE); PHENCYCLIDINE URINE SCREEN NEGATIVE (NEGATIVE)
[2025-05-31] MEDS ORDERED: NALOXONE HCL 0.4MG/ML VIAL IV PRN (16:00)
[2025-05-31] MEDS ORDERED: KETOROLAC 15MG/ML VIAL IV PRN (16:00)
[2025-05-31] MEDS: MORPHINE SULFATE 4 MG/ML INJ (FOR IV/IM USE) IV PRN (16:15)
[2025-05-31] MEDS: ATORVASTATIN CALCIUM 40MG TABLET PO SCH (21:40)
[2025-06-01] VITALS: BP 158/52; PULSE 62; RESP 20; TEMP 36.3; O2SAT 97
[2025-06-01 04:00] VITALS: BP 153/47; PULSE 71; RESP 19; TEMP 36.4; O2SAT 98
[2025-06-01 11:33] VITALS: BP 158/51; RESP 16; TEMP 97.3
== END 2025-06-01 12:30 | disposition home or self-care (01) | DRG 391 ==
LOC: ER 13:19 → 6WST 20:35 → EDBEDREQ 20:38 → EDBEDREQTM 20:38
PROVIDERS: ADMIT Internal Medicine; ATTEND Internal Medicine
PROC: 30233N1 Transfusion of Nonautologous Red Blood Cells into Peripheral Vein, Percutaneous Approach (ICD-10-PCS; principal; 2025-05-30)
DX: K52.9 Noninfective gastroenteritis and colitis, unspecified (principal); K57.31 Diverticulosis of large intestine without perforation or abscess with bleeding; K80.20 Calculus of gallbladder without cholecystitis without obstruction; D50.9 Iron deficiency anemia, unspecified; I10 Essential (primary) hypertension; E11.51 Type 2 diabetes mellitus with diabetic peripheral angiopathy without gangrene; F02.80 Dementia in other diseases classified elsewhere, unspecified severity, without behavioral disturbance, psychotic disturbance, mood disturbance, and anxiety; I70.0 Atherosclerosis of aorta; G30.9 Alzheimer's disease, unspecified; I25.2 Old myocardial infarction; Z88.0 Allergy status to penicillin; Z91.148 Patient's other noncompliance with medication regimen for other reason; Z79.899 Other long term (current) drug therapy; Z82.49 Family history of ischemic heart disease and other diseases of the circulatory system; Z80.9 Family history of malignant neoplasm, unspecified
CPT/HCPCS: 36415; 71045; 74177; 80048; 80076; 80305; 81003; 82607; 82746; 82962; 83036; 83540; 83550; 84484; 85025; 86850; 86900; 86920; 93005; 93971; 99291; J0360; J2270; J2470; P9016; Q9967; J0131